=== PATIENT | female | born 1955 | race Caucasian/White ===

== ENCOUNTER 2020-04-06 19:23 | Emergency (ER) | payer MEDICARE, OTHER ==
[2020-04-06 20:15] LABS: BLOOD UREA NITROGEN,BUN 17 mg/dL (7.0-18.0); CARBON DIOXIDE,CO2 27.9 mmol/L (21.0-32.0); CHLORIDE,CL 103 mmol/L (98-107); GLUCOSE RANDOM 119 mg/dL (74-106); SODIUM,NA 140 mmol/L (136-145)
--- NOTE | 2020-04-06 20:19 | EDM.PDOC ---
ED HPI GENERAL MEDICAL PROBLEM - General Chief Complaint: Respiratory Problem Stated Complaint: CHEST PAIN Time Seen by Provider: 04/06/20 19:37 Source of Information: Reports: Patient History Limitations: Reports: No Limitations - History of Present Illness INITIAL COMMENTS - FREE TEXT/NARRATIVE: 64-year-old female history of hypertension on metoprolol presents with right-sided pleuritic chest pain that started acutely this morning. She slept in a recliner last night. Pain is exacerbated with sitting up and taking a deep breath. She denies any fever, chills, cough, abdominal pain, palpitation, nausea, vomiting, dysuria, hematuria, leg pain or swelling. ROS: A 10-point review of systems, other than pertinent positives and negatives as stated per HPI, is otherwise negative PHYSICAL EXAM General: AOx4, GCS = 15, mild distress HEENT: dry mucous membrane Neck: supple, no meningismus, no Kernig or Brudzinski Cardiac: S1S2 bradycardia Respiratory: CTAB, no crackles or rales, no wheezing Abdomen: Soft, nontender, no rebound or guarding, nondistended, no pulsatile mass. Back: nontender Musculoskeletal: NVI distally, no deformity Neuro: No focal deficits, CN 2 - 12 WNL. right side of chest Pain Score (Numeric/FACES): 4 - Related Data Allergies Allergy/AdvReac Type Severity Reaction Status Date / Time erythromycin base Allergy Rash Verified 04/06/20 19:29 [Erythromycin Base] Home Meds: Home Meds Acetaminophen/oxyCODONE [Percocet 325-5 MG] 1 tab PO Q6H PRN 3 Days #12 tab 04/06/20 [Rx] Metoprolol Tartrate [Lopressor] mg PO DAILY 04/06/20 [History] Naproxen [Naprosyn] 500 mg PO Q12HR #10 tab 04/06/20 [Rx] Past Medical History Cardiovascular History: Reports: Hypertension - Infectious Disease History Infectious Disease History: Reports: Chicken Pox, Measles - Past Surgical History Female Surgical History: Reports: Hysterectomy Musculoskeletal Surgical History: Reports: Other (See Below) Other Musculoskeletal Surgeries/Procedures:: knee surgery bilaterally Social & Family History - Family History Family Medical History: Noncontributory - Tobacco Use Smoking Status *Q: Never Smoker - Caffeine Use Caffeine Use: Reports: Coffee, Soda - Recreational Drug Use Recreational Drug Use: Yes Recreational Drug Type: Reports: Marijuana/Hashish Recreational Drug Use Frequency: Rarely ED ROS GENERAL - Review of Systems Review Of Systems: Comprehensive ROS is negative, except as noted in HPI. ED EXAM, GENERAL - Physical Exam Exam: See Below EKG INTERPRETATION EKG Interpretation Comments: 42 Bpm, sinus bradycardia, normal QRS interval, no STEMI. EKG and rhythm strip interpreted by me at 1958 Course - Vital Signs Last Recorded V/S: Last Vital Signs Temp 97.8 F 04/06/20 19:31 Pulse 45 L 04/06/20 22:35 Resp 16 04/06/20 22:35 BP 178/89 H 04/06/20 19:31 Pulse Ox 98 04/06/20 22:35 - Orders/Labs/Meds Orders: Active Orders 24 hr Category Date Time Status EKG Documentation Completion [RC] STAT Care 04/06/20 19:57 Active Labs: Laboratory Tests 04/06/20 04/06/20 04/06/20 Range/Units 19:32 19:32 19:32 WBC 10.23 (4.0-11.0) K/uL RBC 4.35 (4.30-5.90) M/uL Hgb 13.4 (12.0-16.0) g/dL Hct 41.3 (36.0-46.0) % MCV 94.9 (80.0-98.0) fL MCH 30.8 (27.0-32.0) pg MCHC 32.4 (31.0-37.0) g/dL RDW Std Deviation 46.3 (28.0-62.0) fl RDW Coeff of Des 13 (11.0-15.0) % Plt Count 249 (150-400) K/uL MPV 9.30 (7.40-12.00) fL Neut % (Auto) 56.5 (48.0-80.0) % Lymph % (Auto) 28.3 (16.0-40.0) % Hughes % (Auto) 10.6 (0.0-15.0) % Eos % (Auto) 4.0 (0.0-7.0) % Baso % (Auto) 0.6 (0.0-1.5) % Neut # (Auto) 5.8 H (1.4-5.7) K/uL Lymph # (Auto) 2.9 H (0.6-2.4) K/uL Hughes # (Auto) 1.1 H (0.0-0.8) K/uL Eos # (Auto) 0.4 (0.0-0.7) K/uL Baso # (Auto) 0.1 (0.0-0.1) K/uL Nucleated RBC % 0.0 /100WBC Nucleated RBCs # 0 K/uL INR 1.00 Sodium 140 (136-145) mmol/L Potassium 4.0 (3.5-5.1) mmol/L Chloride 103 (98-107) mmol/L Carbon Dioxide 27.9 (21.0-32.0) mmol/L BUN 17 (7.0-18.0) mg/dL Creatinine 1.1 H (0.6-1.0) mg/dL Est Cr Clr Drug Dosing 52.58 mL/min Estimated GFR (MDRD) 49.7 ml/min Glucose 119 H (74-106) mg/dL Calcium 9.0 (8.5-10.1) mg/dL Total Bilirubin 0.4 (0.2-1.0) mg/dL AST 31 (15-37) IU/L ALT 25 (14-63) IU/L Alkaline Phosphatase 93 (46-116) U/L Troponin I < 0.050 (0.000-0.056) ng/mL Total Protein 7.5 (6.4-8.2) g/dL Albumin 3.9 (3.4-5.0) g/dL Globulin 3.6 (2.6-4.0) g/dL Albumin/Globulin Ratio 1.1 (0.9-1.6) SARS-CoV-2 RNA (RT-PCR) (NEGATIVE) 04/06/20 04/06/20 Range/Units 21:20 21:35 WBC (4.0-11.0) K/uL RBC (4.30-5.90) M/uL Hgb (12.0-16.0) g/dL Hct (36.0-46.0) % MCV (80.0-98.0) fL MCH (27.0-32.0) pg MCHC (31.0-37.0) g/dL RDW Std Deviation (28.0-62.0) fl RDW Coeff of Des (11.0-15.0) % Plt Count (150-400) K/uL MPV (7.40-12.00) fL Neut % (Auto) (48.0-80.0) % Lymph % (Auto) (16.0-40.0) % Hughes % (Auto) (0.0-15.0) % Eos % (Auto) (0.0-7.0) % Baso % (Auto) (0.0-1.5) % Neut # (Auto) (1.4-5.7) K/uL Lymph # (Auto) (0.6-2.4) K/uL Hughes # (Auto) (0.0-0.8) K/uL Eos # (Auto) (0.0-0.7) K/uL Baso # (Auto) (0.0-0.1) K/uL Nucleated RBC % /100WBC Nucleated RBCs # K/uL INR Sodium (136-145) mmol/L Potassium (3.5-5.1) mmol/L Chloride (98-107) mmol/L Carbon Dioxide (21.0-32.0) mmol/L BUN (7.0-18.0) mg/dL Creatinine (0.6-1.0) mg/dL Est Cr Clr Drug Dosing mL/min Estimated GFR (MDRD) ml/min Glucose (74-106) mg/dL Calcium (8.5-10.1) mg/dL Total Bilirubin (0.2-1.0) mg/dL AST (15-37) IU/L ALT (14-63) IU/L Alkaline Phosphatase (46-116) U/L Troponin I < 0.050 (0.000-0.056) ng/mL Total Protein (6.4-8.2) g/dL Albumin (3.4-5.0) g/dL Globulin (2.6-4.0) g/dL Albumin/Globulin Ratio (0.9-1.6) SARS-CoV-2 RNA (RT-PCR) NEGATIVE (NEGATIVE) Meds: Medications Discontinued Medications Generic Name Dose Route Start Last Admin Trade Name Freq PRN Reason Stop Dose Admin Iopamidol 50 ml 04/06/20 21:27 04/06/20 21:27 Isovue-370 (76%) IV 04/06/20 21:28 50 ml ONETIME STA Administration Ketorolac Tromethamine 30 mg 04/06/20 22:39 Toradol IVPUSH 04/06/20 22:40 ONETIME ONE - Re-Assessments/Exams Free Text/Narrative Re-Assessment/Exam: 04/06/20 23:13 After treatments and a prolonged observation period in the ER, the patient improved clinically and is stable for discharge. I performed a repeat examination and the patient has not demonstrated any new abnormal findings. Patient exhibits normal vital signs and has exhibited a normal gait. I advised the patient to return to the ER for reevaluation if symptoms worsened, and to follow up with their PCP within 2-3 days. MEDICAL DECISION MAKING: I reviewed the patients past medical records, lab and radiographic findings. I discussed the case with the patient. My differential diagnosis included: Costochondritis, ACS, pneumonia, PE, pneumothorax, pulmonary edema/CHF, aortic dissection, pericarditis, intra-abdominal process. Given the EKG and clinical history, I do not suspect pericarditis. There is no evidence of pneumothorax or infiltrate on CXR. Aortic dissection was considered, and was not demonstrated on CTA Chest. The patients history, chest X-ray, and exam do not suggest pulmonary edema/congestive heart failure. Pulmonary embolism was considered but considered, and was negative on the CTA chest. Intra-abdominal pathology felt unlikely given benign/non tender abdominal exam. Acute coronary syndrome was considered but there are negative serial biomarkers, no acute ischemic EKG changes, and the patient has a low HEART score. Based on this, I feel that there is low risk for short-term major adverse cardiac event. I have discussed this with the patient and reviewed options for inpatient and outpatient management. The patient verbalizes an excellent understanding of the above including presence of small risk of short-term major adverse cardiac event even in the setting of low HEART score, negative cardiac biomarker, and compendium of elements of this presentation. The patient wishes to pursue further workup on as an outpatient. Departure - Departure Time of Disposition: 22:40 Disposition: Home, Self-Care 01 Condition: Good Clinical Impression: Costochondritis, acute - Discharge Information *PRESCRIPTION DRUG MONITORING PROGRAM REVIEWED*: Yes *COPY OF PRESCRIPTION DRUG MONITORING REPORT IN PATIENT RUTH: Not Applicable Prescriptions: Naproxen [Naprosyn] 500 mg PO Q12HR #10 tab Acetaminophen/oxyCODONE [Percocet 325-5 MG] 1 tab PO Q6H PRN 3 Days #12 tab PRN Reason: Pain Instructions: Costochondritis, [id number] Referrals: PCP,None [Primary Care Provider] - Forms: ED Department Discharge Additional Instructions: The following information is given to patients seen in the emergency department who are being discharged to home. This information is to outline your options for follow-up care. We provide all patients seen in our emergency department with a follow-up referral. The need for follow-up, as well as the timing and circumstances, are variable depending upon the specifics of your emergency department visit. If you don't have a primary care physician on staff, we will provide you with a referral. We always advise you to contact your personal physician following an emergency department visit to inform them of the circumstance of the visit and for follow-up with them and/or the need for any referrals to a consulting specialist. The emergency department will also refer you to a specialist when appropriate. This referral assures that you have the opportunity for follow-up care with a specialist. All of these measure are taken in an effort to provide you with optimal care, which includes your follow-up. Under all circumstances we always encourage you to contact your private physician who remains a resource for coordinating your care. When calling for follow-up care, please make the office aware that this follow-up is from your recent emergency room visit. If for any reason you are refused follow-up, please contact the [facility] Emergency Department at and asked to speak to the emergency department charge nurse. If you do not have a primary care doctor, please follow up with the clinics below within 3-5 days. [facility] [address] [place] [id number] [id number] Sepsis Event Note (ED) - Evaluation Sepsis Screening Result: No Definite Risk - Focused Exam Vital Signs: Vital Signs Temp Pulse Resp BP Pulse Ox 04/06/20 22:35 45 L 16 98 04/06/20 19:31 97.8 F 46 L 17 178/89 H 95 - My Orders Last 24 Hours: My Active Orders 04/06/20 19:57 EKG Documentation Completion [RC] STAT - Assessment/Plan Last 24 Hours: My Active Orders 04/06/20 19:57 EKG Documentation Completion [RC] STAT
[2020-04-06] MEDS ORDERED: Iopamidol 755 MG/ML 50 ML Bottle IV STA (21:27)
--- NOTE | 2020-04-06 21:42 | CT ---
CT chest Technique: Multiple axial sections were obtained through the chest. Intravenous contrast was utilized. Study has been performed as a pulmonary angiogram protocol. Findings: Pulmonary arteries are well-opacified. No filling defects are seen to indicate pulmonary embolism. Aorta shows no aneurysm. Visualized upper abdominal structures shows no discrete abnormality. Mediastinum and hilar regions show no adenopathy or mass. No axillary adenopathy is seen. Lung window settings were reviewed which shows no acute parenchymal change. No pleural effusions are seen. Bone window settings were reviewed which shows no acute osseous finding. Mild degenerative change is scattered throughout the spine is noted. Impression: 1. No findings of pulmonary embolism. 2. Nothing acute is appreciated on CT study of the chest. Diagnostic code #2 Study was dictated in MDT
[2020-04-06 22:37] VITALS: PULSE 45
[2020-04-06] MEDS ORDERED: Ketorolac 30 MG/ML SDV IVPUSH ONE (22:39)
[2020-04-07 05:11] VITALS: BP 160/90
== END 2020-04-06 23:16 | disposition home or self-care (01) ==
LOC: MW.ED 19:23
DX: M94.0 Chondrocostal junction syndrome [Tietze] (principal); Z20.828 Contact with and (suspected) exposure to other viral communicable diseases; Z88.1 Allergy status to other antibiotic agents; Z79.899 Other long term (current) drug therapy
CPT/HCPCS: 36415; 71275; 80053; 84484; 85025; 85610; 93005; 99285; Q9967; U0002; 99284

== ENCOUNTER 2020-05-23 20:07 | Emergency (ER) | payer MEDICARE ==
--- NOTE | 2020-05-23 20:23 | EDM.PDOC ---
ED HPI GENERAL MEDICAL PROBLEM - General Chief Complaint: Neuro Symptoms/Deficits Stated Complaint: ALTERED MENTAL STATUS Time Seen by Provider: 05/23/20 20:08 Source of Information: Reports: Patient, EMS History Limitations: Reports: Altered Mental Status - History of Present Illness INITIAL COMMENTS - FREE TEXT/NARRATIVE: 65F presents for AMS. History primarily from EMS. Patient does admit to drinking alcohol earlier today. Her family called b/c she seemed less responsive than baseline. When EMS arrived she was bradycardic to high 40s, normotensive, responsive to verbal stimuli but not answering all questions appropriately or following commands appropriately. Onset: Today - Related Data Allergies Allergy/AdvReac Type Severity Reaction Status Date / Time erythromycin base Allergy Rash Verified 05/23/20 21:39 [Erythromycin Base] Home Meds: Home Meds Chlorthalidone 1 tab PO DAILY 05/23/20 [History] Doxycycline Hyclate 1 tab PO DAILY 05/23/20 [History] Metoprolol/Hydrochlorothiazide [Metoprolol-HCTZ 50-25 MG] 1 tab PO BID 05/23/20 [History] Olmesartan Medoxomil 20 mg PO DAILY 05/23/20 [History] Past Medical History Cardiovascular History: Reports: Hypertension - Infectious Disease History Infectious Disease History: Reports: Chicken Pox, Measles - Past Surgical History Female Surgical History: Reports: Hysterectomy Musculoskeletal Surgical History: Reports: Other (See Below) Other Musculoskeletal Surgeries/Procedures:: knee surgery bilaterally Social & Family History - Family History Family Medical History: Noncontributory - Caffeine Use Caffeine Use: Reports: Coffee, Soda ED ROS GENERAL - Review of Systems Review Of Systems: See Below (unable to obtain 2/2 AMS) ED EXAM, GENERAL - Physical Exam Exam: See Below Exam Limited By: Altered Mental Status General Appearance: Alert, WD/WN, No Apparent Distress Eye Exam: Bilateral Eye: PERRL Head: Atraumatic, Normocephalic Neck: Normal Inspection, Non-Tender Respiratory/Chest: No Respiratory Distress, Lungs Clear, Normal Breath Sounds, No Accessory Muscle Use, Chest Non-Tender Cardiovascular: Normal Peripheral Pulses GI/Abdominal: Soft, Non-Tender, No Distention Extremities: Normal Inspection, Non-Tender Neurological: Alert, Other (answering some questions, moving all extremities) Skin Exam: Warm, Dry Course - Vital Signs Last Recorded V/S: Last Vital Signs Temp 97.9 F 05/23/20 21:00 Pulse 40 L 05/24/20 01:30 Resp 16 05/24/20 01:30 BP 122/67 05/24/20 01:30 Pulse Ox 97 05/24/20 01:30 - Orders/Labs/Meds Orders: Active Orders 24 hr Category Date Time Status Blood Glucose Check, Bedside [RC] ONETIME Care 05/23/20 20:09 Active Cardiac Monitoring [RC] . DIRECTED Care 05/23/20 20:08 Active EKG 12 Lead [EKG Documentation Completion] [RC] STAT Care 05/23/20 22:32 Active EKG Documentation Completion [RC] STAT Care 05/23/20 20:09 Active Pulse Oximetry [RC] ASDIRECTED Care 05/23/20 20:08 Active Labs: Laboratory Tests 05/23/20 05/23/20 05/23/20 Range/Units 20:10 20:10 20:10 WBC 6.54 (4.0-11.0) K/uL RBC 4.11 L (4.30-5.90) M/uL Hgb 12.8 (12.0-16.0) g/dL Hct 38.5 (36.0-46.0) % MCV 93.7 (80.0-98.0) fL MCH 31.1 (27.0-32.0) pg MCHC 33.2 (31.0-37.0) g/dL RDW Std Deviation 45.8 (28.0-62.0) fl RDW Coeff of Des 13 (11.0-15.0) % Plt Count 226 (150-400) K/uL MPV 8.70 (7.40-12.00) fL Neut % (Auto) 48.9 (48.0-80.0) % Lymph % (Auto) 40.1 H (16.0-40.0) % Johnson % (Auto) 6.4 (0.0-15.0) % Eos % (Auto) 4.1 (0.0-7.0) % Baso % (Auto) 0.5 (0.0-1.5) % Neut # (Auto) 3.2 (1.4-5.7) K/uL Lymph # (Auto) 2.6 H (0.6-2.4) K/uL Johnson # (Auto) 0.4 (0.0-0.8) K/uL Eos # (Auto) 0.3 (0.0-0.7) K/uL Baso # (Auto) 0.0 (0.0-0.1) K/uL Nucleated RBC % 0.0 /100WBC Nucleated RBCs # 0 K/uL INR APTT (18.6-31.3) SEC ABG pH (7.35-7.45) ABG pCO2 (35-45) mmHG ABG pO2 (75-100) mmHG ABG HCO3 (22-26) mEq/L ABG Total CO2 ABG Base Excess (-2.0-2.0) Lactate 1.8 (0.20-2.00) mmol/L Sodium (136-145) mmol/L Potassium (3.5-5.1) mmol/L Chloride (98-107) mmol/L Carbon Dioxide (21.0-32.0) mmol/L BUN (7.0-18.0) mg/dL Creatinine (0.6-1.0) mg/dL Est Cr Clr Drug Dosing Estimated GFR (MDRD) ml/min Glucose (74-106) mg/dL POC Glucose (60-110) mg/dL Calcium (8.5-10.1) mg/dL Magnesium (1.8-2.4) mg/dL Total Bilirubin (0.2-1.0) mg/dL AST (15-37) IU/L ALT (14-63) IU/L Alkaline Phosphatase (46-116) U/L Troponin I (0.000-0.056) ng/mL B-Natriuretic Peptide 134 H (<100) PG/ML Total Protein (6.4-8.2) g/dL Albumin (3.4-5.0) g/dL Globulin (2.6-4.0) g/dL Albumin/Globulin Ratio (0.9-1.6) TSH 3rd Generation (0.36-3.74) uIU/mL Urine Color Urine Appearance Urine pH (5.0-8.0) Ur Specific [place] (1.001-1.035) Urine Protein (NEGATIVE) mg/dL Urine Glucose (UA) (NEGATIVE) mg/dL Urine Ketones (NEGATIVE) mg/dL Urine Occult Blood (NEGATIVE) Urine Nitrite (NEGATIVE) Urine Bilirubin (NEGATIVE) Urine Urobilinogen (<2.0) EU/dL Ur Leukocyte Esterase (NEGATIVE) Urine RBC (0-2/HPF) Urine WBC (0-5/HPF) Ur Epithelial Cells (NONE-FEW) Urine Bacteria (NEGATIVE) Urine Opiates Screen (NEGATIVE) Ur Oxycodone Screen (NEGATIVE) Urine Methadone Screen (NEGATIVE) Ur Barbiturates Screen (NEGATIVE) Ur Phencyclidine Scrn (NEGATIVE) Ur Amphetamine Screen (NEGATIVE) U Methamphetamines Scrn (NEGATIVE) U Benzodiazepines Scrn (NEGATIVE) U Cocaine Metab Screen (NEGATIVE) U Marijuana (THC) Screen (NEGATIVE) Ethyl Alcohol mg/dL 05/23/20 05/23/20 05/23/20 Range/Units 20:10 20:10 20:20 WBC (4.0-11.0) K/uL RBC (4.30-5.90) M/uL Hgb (12.0-16.0) g/dL Hct (36.0-46.0) % MCV (80.0-98.0) fL MCH (27.0-32.0) pg MCHC (31.0-37.0) g/dL RDW Std Deviation (28.0-62.0) fl RDW Coeff of Des (11.0-15.0) % Plt Count (150-400) K/uL MPV (7.40-12.00) fL Neut % (Auto) (48.0-80.0) % Lymph % (Auto) (16.0-40.0) % Johnson % (Auto) (0.0-15.0) % Eos % (Auto) (0.0-7.0) % Baso % (Auto) (0.0-1.5) % Neut # (Auto) (1.4-5.7) K/uL Lymph # (Auto) (0.6-2.4) K/uL Johnson # (Auto) (0.0-0.8) K/uL Eos # (Auto) (0.0-0.7) K/uL Baso # (Auto) (0.0-0.1) K/uL Nucleated RBC % /100WBC Nucleated RBCs # K/uL INR 0.97 APTT 24.3 (18.6-31.3) SEC ABG pH (7.35-7.45) ABG pCO2 (35-45) mmHG ABG pO2 (75-100) mmHG ABG HCO3 (22-26) mEq/L ABG Total CO2 ABG Base Excess (-2.0-2.0) Lactate (0.20-2.00) mmol/L Sodium 140 (136-145) mmol/L Potassium 3.2 L (3.5-5.1) mmol/L Chloride 103 (98-107) mmol/L Carbon Dioxide 25.6 (21.0-32.0) mmol/L BUN 15 (7.0-18.0) mg/dL Creatinine 1.0 (0.6-1.0) mg/dL Est Cr Clr Drug Dosing TNP Estimated GFR (MDRD) 55.3 ml/min Glucose 120 H (74-106) mg/dL POC Glucose 112 H (60-110) mg/dL Calcium 8.1 L (8.5-10.1) mg/dL Magnesium 2.0 (1.8-2.4) mg/dL Total Bilirubin 0.3 (0.2-1.0) mg/dL AST 27 (15-37) IU/L ALT 24 (14-63) IU/L Alkaline Phosphatase 86 (46-116) U/L Troponin I < 0.050 (0.000-0.056) ng/mL B-Natriuretic Peptide (<100) PG/ML Total Protein 7.3 (6.4-8.2) g/dL Albumin 3.8 (3.4-5.0) g/dL Globulin 3.5 (2.6-4.0) g/dL Albumin/Globulin Ratio 1.1 (0.9-1.6) TSH 3rd Generation 1.46 (0.36-3.74) uIU/mL Urine Color Urine Appearance Urine pH (5.0-8.0) Ur Specific [place] (1.001-1.035) Urine Protein (NEGATIVE) mg/dL Urine Glucose (UA) (NEGATIVE) mg/dL Urine Ketones (NEGATIVE) mg/dL Urine Occult Blood (NEGATIVE) Urine Nitrite (NEGATIVE) Urine Bilirubin (NEGATIVE) Urine Urobilinogen (<2.0) EU/dL Ur Leukocyte Esterase (NEGATIVE) Urine RBC (0-2/HPF) Urine WBC (0-5/HPF) Ur Epithelial Cells (NONE-FEW) Urine Bacteria (NEGATIVE) Urine Opiates Screen (NEGATIVE) Ur Oxycodone Screen (NEGATIVE) Urine Methadone Screen (NEGATIVE) Ur Barbiturates Screen (NEGATIVE) Ur Phencyclidine Scrn (NEGATIVE) Ur Amphetamine Screen (NEGATIVE) U Methamphetamines Scrn (NEGATIVE) U Benzodiazepines Scrn (NEGATIVE) U Cocaine Metab Screen (NEGATIVE) U Marijuana (THC) Screen (NEGATIVE) Ethyl Alcohol 182 mg/dL 05/23/20 05/23/20 05/23/20 Range/Units 20:25 20:25 20:39 WBC (4.0-11.0) K/uL RBC (4.30-5.90) M/uL Hgb (12.0-16.0) g/dL Hct (36.0-46.0) % MCV (80.0-98.0) fL MCH (27.0-32.0) pg MCHC (31.0-37.0) g/dL RDW Std Deviation (28.0-62.0) fl RDW Coeff of Des (11.0-15.0) % Plt Count (150-400) K/uL MPV (7.40-12.00) fL Neut % (Auto) (48.0-80.0) % Lymph % (Auto) (16.0-40.0) % Johnson % (Auto) (0.0-15.0) % Eos % (Auto) (0.0-7.0) % Baso % (Auto) (0.0-1.5) % Neut # (Auto) (1.4-5.7) K/uL Lymph # (Auto) (0.6-2.4) K/uL Johnson # (Auto) (0.0-0.8) K/uL Eos # (Auto) (0.0-0.7) K/uL Baso # (Auto) (0.0-0.1) K/uL Nucleated RBC % /100WBC Nucleated RBCs # K/uL INR APTT (18.6-31.3) SEC ABG pH 7.376 (7.35-7.45) ABG pCO2 40 (35-45) mmHG ABG pO2 82 (75-100) mmHG ABG HCO3 23 (22-26) mEq/L ABG Total CO2 21.2 ABG Base Excess -1.7 (-2.0-2.0) Lactate (0.20-2.00) mmol/L Sodium (136-145) mmol/L Potassium (3.5-5.1) mmol/L Chloride (98-107) mmol/L Carbon Dioxide (21.0-32.0) mmol/L BUN (7.0-18.0) mg/dL Creatinine (0.6-1.0) mg/dL Est Cr Clr Drug Dosing Estimated GFR (MDRD) ml/min Glucose (74-106) mg/dL POC Glucose (60-110) mg/dL Calcium (8.5-10.1) mg/dL Magnesium (1.8-2.4) mg/dL Total Bilirubin (0.2-1.0) mg/dL AST (15-37) IU/L ALT (14-63) IU/L Alkaline Phosphatase (46-116) U/L Troponin I (0.000-0.056) ng/mL B-Natriuretic Peptide (<100) PG/ML Total Protein (6.4-8.2) g/dL Albumin (3.4-5.0) g/dL Globulin (2.6-4.0) g/dL Albumin/Globulin Ratio (0.9-1.6) TSH 3rd Generation (0.36-3.74) uIU/mL Urine Color YELLOW Urine Appearance SLT CLOUDY Urine pH 5.5 (5.0-8.0) Ur Specific [place] 1.020 (1.001-1.035) Urine Protein NEGATIVE (NEGATIVE) mg/dL Urine Glucose (UA) NEGATIVE (NEGATIVE) mg/dL Urine Ketones NEGATIVE (NEGATIVE) mg/dL Urine Occult Blood TRACE-LYSED H (NEGATIVE) Urine Nitrite NEGATIVE (NEGATIVE) Urine Bilirubin NEGATIVE (NEGATIVE) Urine Urobilinogen 0.2 (<2.0) EU/dL Ur Leukocyte Esterase NEGATIVE (NEGATIVE) Urine RBC 0-1 (0-2/HPF) Urine WBC 0-1 (0-5/HPF) Ur Epithelial Cells RARE (NONE-FEW) Urine Bacteria RARE (NEGATIVE) Urine Opiates Screen NEGATIVE (NEGATIVE) Ur Oxycodone Screen NEGATIVE (NEGATIVE) Urine Methadone Screen NEGATIVE (NEGATIVE) Ur Barbiturates Screen NEGATIVE (NEGATIVE) Ur Phencyclidine Scrn NEGATIVE (NEGATIVE) Ur Amphetamine Screen NEGATIVE (NEGATIVE) U Methamphetamines Scrn NEGATIVE (NEGATIVE) U Benzodiazepines Scrn NEGATIVE (NEGATIVE) U Cocaine Metab Screen NEGATIVE (NEGATIVE) U Marijuana (THC) Screen NEGATIVE (NEGATIVE) Ethyl Alcohol mg/dL Meds: Medications Discontinued Medications Generic Name Dose Route Start Last Admin Trade Name Maurice PRN Reason Stop Dose Admin Sodium Chloride 1,000 mls @ 999 mls/hr 05/24/20 01:26 05/24/20 01:26 Normal Saline IV 05/24/20 02:26 999 mls/hr .BOLUS ONE Administration - Re-Assessments/Exams Free Text/Narrative Re-Assessment/Exam: 05/23/20 21:15 Patient presents with AMS, admits to EtOH use. Will get labs and imaging, will f/u results and obs for return to baseline. Free Text/Narrative Re-Assessment/Exam: 05/24/2020 0230: patient much more alert, speaking clearly and without complaints. Informed patient of her low HR and she states it is always in 40-50s. Instructed her to f/u with her PMD and discuss perhaps reducing or d/c'ing b-melania medications. Patient symptoms at presentation likely 2/2 alcohol intox. She is d/c'ed to care of her daughter Departure - Departure Time of Disposition: 02:10 Disposition: Home, Self-Care 01 Clinical Impression: Alcohol intolerance, Bradycardia - Discharge Information Instructions: Bradycardia, Adult Referrals: Caesar Serra MD [Primary Care Provider] - Forms: ED Department Discharge Additional Instructions: The following information is given to patients seen in the emergency department who are being discharged to home. This information is to outline your options for follow-up care. We provide all patients seen in our emergency department with a follow-up referral. The need for follow-up, as well as the timing and circumstances, are variable depending upon the specifics of your emergency department visit. If you don't have a primary care physician on staff, we will provide you with a referral. We always advise you to contact your personal physician following an emergency department visit to inform them of the circumstance of the visit and for follow-up with them and/or the need for any referrals to a consulting specialist. The emergency department will also refer you to a specialist when appropriate. This referral assures that you have the opportunity for follow-up care with a specialist. All of these measure are taken in an effort to provide you with optimal care, which includes your follow-up. Under all circumstances we always encourage you to contact your private physician who remains a resource for coordinating your care. When calling for follow-up care, please make the office aware that this follow-up is from your recent emergency room visit. If for any reason you are refused follow-up, please contact the [facility] Emergency Department at and asked to speak to the emergency department charge nurse. Sepsis Event Note (ED) - Focused Exam Vital Signs: Vital Signs Temp Pulse Resp BP Pulse Ox 05/24/20 01:30 40 L 16 122/67 97 05/23/20 23:00 43 L 17 104/68 98 05/23/20 22:45 46 L 17 104/67 97 05/23/20 22:30 43 L 17 115/70 98 05/23/20 22:15 47 L 17 129/76 97 05/23/20 21:45 48 L 17 109/70 97 05/23/20 21:30 49 L 17 108/68 96 05/23/20 21:15 54 L 17 109/71 96 05/23/20 21:00 97.9 F 67 20 129/79 97 05/23/20 20:45 57 L 18 129/78 97 05/23/20 20:30 56 L 18 163/94 H 97 - My Orders Last 24 Hours: My Active Orders 05/23/20 20:08 Cardiac Monitoring [RC] . DIRECTED Pulse Oximetry [RC] ASDIRECTED 05/23/20 20:09 Blood Glucose Check, Bedside [RC] ONETIME EKG Documentation Completion [RC] STAT 05/23/20 22:32 EKG 12 Lead [EKG Documentation Completion] [RC] STAT - Assessment/Plan Last 24 Hours: My Active Orders 05/23/20 20:08 Cardiac Monitoring [RC] . DIRECTED Pulse Oximetry [RC] ASDIRECTED 05/23/20 20:09 Blood Glucose Check, Bedside [RC] ONETIME EKG Documentation Completion [RC] STAT 05/23/20 22:32 EKG 12 Lead [EKG Documentation Completion] [RC] STAT
[2020-05-23 20:46] LABS: BLOOD UREA NITROGEN,BUN 15 mg/dL (7.0-18.0); CARBON DIOXIDE,CO2 25.6 mmol/L (21.0-32.0); CHLORIDE,CL 103 mmol/L (98-107); GLUCOSE RANDOM 120 mg/dL (74-106); POTASSIUM,K 3.2 mmol/L (3.5-5.1); SODIUM,NA 140 mmol/L (136-145)
--- NOTE | 2020-05-23 22:30 | CR ---
Chest: Portable view of the chest was obtained. Comparison: Prior chest x-ray of 12/08/[address] performed on 04/06/20. Heart is slightly enlarged. Tortuous thoracic aorta is seen. Lungs are clear with no acute parenchymal change. Bony structures are grossly intact. Scoliosis is noted within the spine. Impression: 1. Slightly enlarged heart with tortuous thoracic aorta. 2. Other findings as noted above. Nothing acute is seen. Diagnostic code #2 This report was dictated in MDT
--- NOTE | 2020-05-23 23:11 | CT ---
INDICATION : Altered mental status. 65-year-old female. TECHNIQUE : Noncontrast CT scan of brain. Axial images. Bone windows. Please note that all CT scans at this facility use dose modulation, iterative reconstruction and/or weight-based dosing when appropriate to reduce radiation dose to as low as reasonably achievable(ALARA). COMPARISON: None. FINDINGS : No acute intra or extra-axial hemorrhage. No visualized intracranial mass. Extensive opacification of the ethmoid and bilateral maxillary sinuses. Postsurgical changes involving the bilateral medial maxillary mcdonough. Mastoid air cells are clear. No fracture of the calvarium. Sandhu-white matter differentiation preserved. No abnormal extra-axial fluid collection. Lateral ventricles are normal in caliber. Minimal degree of age-related atrophy. IMPRESSION : 1. No acute intracranial abnormality. No hemorrhage or mass effect. 2. Extensive bilateral chronic ethmoid and maxillary sinus disease. Dictated by Beka Ryan MD @ 05/23/2020 11:09:56 PM Please note that all CT scans at this facility use dose modulation, iterative reconstruction, and/or weight-based dosing when appropriate to reduce radiation dose to as low as reasonably achievable. Dictated by: Beka Ryan MD @ 05/23/2020 23:10:05 (Electronically Signed)
[2020-05-24] MEDS ORDERED: Sodium Chloride 0.9% 1,000 ML IV ONE (01:26)
[2020-05-24 05:12] VITALS: BP 124/81; PULSE 44
== END 2020-05-24 02:32 | disposition home or self-care (01) ==
LOC: MW.ED 20:07
DX: R00.1 Bradycardia, unspecified (principal); F10.10 Alcohol abuse, uncomplicated; R41.82 Altered mental status, unspecified; I10 Essential (primary) hypertension; Z90.710 Acquired absence of both cervix and uterus; Z88.1 Allergy status to other antibiotic agents; Z79.899 Other long term (current) drug therapy; Y90.6 Blood alcohol level of 120-199 mg/100 ml
CPT/HCPCS: 36415; 36600; 70450; 71045; 80053; 80305; 80307; 81001; 82803; 82962; 83605; 83735; 83880; 84443; 84484; 85025; 85610; 85730; 93005; 96360; 99285; J7030; 93010